=== PATIENT | male | born 2000 | race Caucasian/White ===

== ENCOUNTER 2024-09-15 10:13 | Emergency (ER) | payer MEDICAID, SELFPAY ==
[2024-09-15 10:14] VITALS: BMI 21.7
[2024-09-15 10:30] VITALS: BP 115/77; PULSE 70; RESP 18; TEMP 36.7; O2SAT 100; BMI 21.5
--- NOTE | 2024-09-15 10:55 | XR_ITS ---
Examination: PA lateral chest 2 views TECHNIQUE: Upright PA lateral chest 2 views Exam date and time: September 15, 2024 1103 hours INDICATIONS: Coughing chest pain 2 weeks FINDINGS: Normal heart size Lungs are clear. The osseous structures are intact IMPRESSION: No active disease
--- NOTE | 2024-09-15 10:55 | PD.EDRME ---
Rapid Medical Screening Exam RME Arrival date/time: 09/15/24 10:13 20-year-old male presents the emergency department complains of pain on deep inspiration Chief Complaint: Flu Like Symptoms Time Seen by Provider: 09/15/24 10:33 Vital signs: Vital Signs Temperature 98.1 F 09/15/24 10:30 Pulse Rate 70 09/15/24 10:30 Respiratory Rate 18 09/15/24 10:30 Blood Pressure 115/77 09/15/24 10:30 Pulse Oximetry (%) 100 09/15/24 10:30
[2024-09-15 11:25] LABS: Basophils % (Auto) 0 % (0-2.5); Eosinophils # (Auto) 0.2 Thou/mm3 (0.0-0.5); Eosinophils % (Auto) 2 % (0-10); Hematocrit 39.4 % (41.0-53.0); Hemoglobin 13.7 g/dL (13.5-16.0); Immature Granulocytes % (Auto) 0 % (0-0); Immature Granulocytes Auto 0.03 Thou/mm3 (0.00-0.00); Lymphocytes % (Auto) 22 % (10-50); Mean Corpuscular HGB Conc 34.8 g/dl (31.0-37.0); Mean Corpuscular Hemoglobin 31.4 pg (25.0-35.0); Mean Corpuscular Volume 90 fL (80-100); Monocytes # (Auto) 0.6 Thou/mm3 (0.0-0.8); Monocytes % (Auto) 6 % (0-12); Neutrophils # (Auto) 6.2 Thou/mm3 (1.8-7.7); Neutrophils % (Auto) 69 % (37-80); Nucleated Red Blood Cell % 0 /100 WBC (0); Platelet Count 327 Thou/mm3 (140-440); RDW Standard Deviation 37.7 fL (35.1-43.9); Red Blood Count 4.37 Miln/mm3 (4.50-5.90)
[2024-09-15 11:44] LABS: Alanine Aminotransferase 21 U/L (10-49); Albumin, Serum 5.1 gm/dL (3.5-5.0); Albumin/Globulin Ratio 1.8 (1.2-2.2); Alkaline Phosphatase 82 U/L (46-116); Anion Gap 7 (7-16); Aspartate Amino Transferase 16 U/L (0-34); BUN/Creatinine Ratio 12 Ratio (12-20); Bilirubin,Total 0.6 mg/dL (0.3-1.2); Blood Urea Nitrogen 12 mg/dL (9-23); Calcium 9.9 mg/dL (8.3-10.6); Calcium (Corrected) 9.9 mg/dL (8.5-10.1); Chloride 101 mMol/L (98-107); Estimated Creatinine Clearance 117.3 mL/min (>60); Globulin 2.8 gm/dL (2.3-3.5); Glucose 81 mg/dL (74-106); Osmolality,Calculated 268 (275-295); Potassium 4.2 mMol/L (3.4-5.1); Sodium 135 mMol/L (136-145); Total Protein 7.9 gm/dL (5.7-8.2); Troponin I < 0.002 ng/mL (0.0-0.045); eGFR > 60 See Note
--- NOTE | 2024-09-15 13:14 | EDNOTE_ITS ---
ED General RME/HPI General Chief complaint: Flu Like Symptoms Stated complaint: BACK PAIN, HURTS TO BREATHE X1 DAYS Time Seen by Provider: 09/15/24 10:33 Arrival date/time: 09/15/24 10:13 RME / HPI RME / HPI narrative: 09/15/24 10:13 24-year-old male with past hx of bronchitis, seasonal allergies and chronic smoking presents to the emergency department from home on 09/15/2024 with complains of pain on deep inspiration. He endorses shortness of breath and bilateral lower chest pain on inspiration that radiated towards his back. Describes the pain as sharp, comes and goes . He also noticed greenish yellow sputum that started yesterday after he took a hot shower. He admits that he take 22,000 puffs of nicotine vaping per week for 3 years total and he smoked cigarettes prior to that for a total of 3 years. Total smoking history of 6 years. Occasional alcohol use. Endorses seasonal allergies. Denies taking medications. Denies any surgeries. Denies using any illicit drugs. MD complaint: Lower b/l chest pain Onset (ago): day(s) Location: chest Radiation: back Severity: moderate Quality: sharp Consistency: intermittent Relieving factors: none Exacerbating factors: movement Treatments prior to arrival: NSAID Related Data Previous Rx's ?Medication ?Instructions ?Recorded naproxen 500 mg tablet (Naprosyn) 500 mg PO BID PRN pain #30 tabs 10/11/20 hydrocodone 5 mg-acetaminophen 325 1 tab PO BID PRN pain #10 tabs 05/10/24 mg tablet albuterol sulfate 90 mcg/actuation 2 inh inhalation Q6H #1 ea 09/15/24 breath activated powder inhaler,sensor Allergies Allergy/AdvReac Type Severity Reaction Status Date / Time Iodinated Contrast Media Allergy Verified 09/15/24 10:17 Review of Systems Review of Systems Systems Reviewed: All systems reviewed, normal except as documented Past Medical History Past Medical History NEUROLOGIC: Negative Neurological Disorders, Dementia or Brain Tumor CARDIAC: Negative Cardiac Disorders, Atrial Fibrillation or Congestive Heart Failure RESPIRATORY: Negative Chronic Obstructive Pulmonary Disease (COPD) or CPAP Dependent GASTROINTESTINAL: Negative Gastrointestinal Disorders, Cirrhosis or Celiac Disease GENITOURINARY: Negative Genitourinary Disorders, Renal Disease or Kidney Stones REPRODUCTIVE: Negative Genital Herpes or Syphilis MUSCULOSKELETAL: Negative Musculoskeletal Disorders, Marfan's Syndrome or Rheumatoid Arthritis ENT: Negative Blind or Deafness ENDOCRINE: Negative Endocrine Disorders, Diabetes Mellitus Type 1 or Diabetes Mellitus Type 2 HEMATOLOGIC: Negative Blood Disorders or Hemophilia PSYCHO/SOCIAL: Negative Psychiatric Problems OTHER HISTORY: Negative Down Syndrome or Developmental Delay Surgical History SURGICAL: Positive Tonsillectomy Social History SMOKING STATUS: Current every day smoker SUBSTANCE USE: does not use Travel History EBOLA RISK: No ED Exam Narrative Physical exam: Constitutional:young male, well-developed, well-nourished, in no acute distress, lying in bed. HEENT: NCAT, EOMI, reactive round pupils b/l, patent nares b/l, moist mucous membranes, on room air Lung: Diminished breath sounds on auscultation, no wheezing, no rhonchi, no crackles Heart: Regular S1S2, no murmurs, gallops, or rubs Abdomen: Soft, non-distended, non-tender, bowel sounds present throughout, central obesity present. Extremities: No cyanosis, clubbing, no edema of b/l legs, LE pulses present b/l Neurologic: No focal sensory or motor deficits noted, AOx3, appropriate affect Skin: Warm, dry, no lesions or rashes noted Course Quality Measures none Orders Category Date Time Status EKG (ED ONLY) *Do not use* NOW Care 09/15/24 10:55 Completed EKG (ED Only) Stat Exams 09/15/24 10:55 Ordered XR chest 2V Stat Exams 09/15/24 10:55 Completed CBC Stat Lab 09/15/24 11:05 Completed Comprehensive Metabolic Panel Stat Lab 09/15/24 11:05 Completed Troponin I Stat Lab 09/15/24 11:05 Completed Vital Signs Vital signs: Vital Signs Temperature 98.1 F 09/15/24 10:30 Pulse Rate 70 09/15/24 10:30 Respiratory Rate 18 09/15/24 10:30 Blood Pressure 115/77 09/15/24 10:30 Pulse Oximetry (%) 100 09/15/24 10:30 [facility] Patient data External records reviewed:: None Clinical information provided by:: patient Social determinants that could affect healthcare access:: none Patient has the following chronic illnesses:: None How is presenting disease/condition affected by chronic disease/condition?: no chronic disease Evaluation data The following diagnostics were reviewed and interpreted by me:: lab results and radiology exam(s) Lab and/or radiology exams considered but not ordered:: None Interpretation Summary: CXR: no active disease, no pulmonary edema or pneumonia CMP: within normal limits CBC within normal limits Medications Medications considered but not ordered:: NONE Medication administrations:: None Consultations Consultation(s) initiated? (list below): No Diagnosis Differential Diagnosis ED Complaint MDM: Smoking associated asthma Most likely diagnosis given after review of the tests above:: URI Admission Indicated Admission indicated?: not indicated Explain why admission is indicated or not indicated:: Not indicated as patient presents with likely URI. He requires supportive care with albuterol inhaler for any wheezing or shortness of breath. Patient can follow up with PCP in outpatient setting. Admission Request Was there a request for admission?: No Disposition Plan Disposition Plan: Discharge Discharge Attestation Discharge Attestation: The patient and all family members were given an opportunity to ask questions and understood the discharge instructions. Discharge instructions specifically effects, indications for sooner follow up or return to the emergency department, and the expected course of current diagnosis. Patient condition: Stable Medical Decision Making MDM Narrative MDM Narrative: A 24-year-old male with past hx of bronchitis, seasonal allergies and chronic smoking presents to the emergency department from home on 09/15/2024 with complains of pain on deep inspiration. He endorses shortness of breath and bilateral lower chest pain on inspiration that radiated towards his back. Describes the pain as sharp, comes and goes . He also noticed greenish yellow sputum that started yesterday after he took a hot shower. He admits that he take 22,000 puffs of nicotine vaping per week. He should active infectious source with SOB and mild productive cough though likely viral in nature secondary to chronic smoking history. Chest with diminished breath sounds on auscultation. Albuterol inhaler may help with symptomatic relief. Otherwise, patient can be discharged and follow up with PCP. Differential Diagnosis Differential Diagnosis: Smoking associated asthma Lab Data 09/15/24 11:05 09/15/24 11:05 Labs: Lab Results 09/15/24 Range/Units 11:05 WBC 9.0 (3.8-10.6) Thou/mm3 RBC 4.37 L (4.50-5.90) Miln/mm3 Hgb 13.7 (13.5-16.0) g/dL Hct 39.4 L (41.0-53.0) % MCV 90 (80-100) fL MCH 31.4 (25.0-35.0) pg MCHC 34.8 (31.0-37.0) g/dl RDW Std Deviation 37.7 (35.1-43.9) fL Plt Count 327 (140-440) Thou/mm3 Neut % (Auto) 69 (37-80) % Lymph % (Auto) 22 (10-50) % [place] % (Auto) 6 (0-12) % Eos % (Auto) 2 (0-10) % Baso % (Auto) 0 (0-2.5) % Neut # (Auto) 6.2 (1.8-7.7) Thou/mm3 Lymph # (Auto) 2.0 (1.0-4.8) Thou/mm3 [place] # (Auto) 0.6 (0.0-0.8) Thou/mm3 Eos # (Auto) 0.2 (0.0-0.5) Thou/mm3 Baso # (Auto) 0.0 (0.0-0.2) Thou/mm3 Immature Gran # (Auto) 0.03 H (0.00-0.00) Thou/mm3 Absolute Nucleated RBC 0.00 (0.00-0.00) Thou/mm3 Immature Gran % 0 (0-0) % Nucleated RBC % 0 (0) /100 WBC Sodium 135 L (136-145) mMol/L Potassium 4.2 (3.4-5.1) mMol/L Chloride 101 (98-107) mMol/L Carbon Dioxide 27.0 (20.0-31.0) mMol/L Anion Gap 7 (7-16) BUN 12 (9-23) mg/dL Creatinine 1.0 (0.6-1.3) mg/dL Estim Creat Clear Calc 117.3 (>60) mL/min eGFR > 60 (60 - ) See Note BUN/Creatinine Ratio 12 (12-20) Ratio Glucose 81 (74-106) mg/dL Calculated Osmolality 268 L (275-295) Calcium 9.9 (8.3-10.6) mg/dL Corrected Calcium 9.9 (8.5-10.1) mg/dL Total Bilirubin 0.6 (0.3-1.2) mg/dL AST 16 (0-34) U/L ALT 21 (10-49) U/L Alkaline Phosphatase 82 (46-116) U/L Troponin I < 0.002 (0.0-0.045) ng/mL Total Protein 7.9 (5.7-8.2) gm/dL Albumin 5.1 H (3.5-5.0) gm/dL Globulin 2.8 (2.3-3.5) gm/dL Albumin/Globulin Ratio 1.8 (1.2-2.2) Discharge Plan Plan Patient Disposition: HOME (Self Care) Patient condition on transfer: Stable Health Concerns: Please take albuterol inhaler 2 puffs every 6 hours as needed. Please follow up with PCP in 1 week. If symptoms worsen, return to the ED. Prescriptions/Referrals Prescriptions/Med Rec: New albuterol sulfate 90 mcg/actuation aero powdr breath act w/sensor 2 inh inhalation Q6H Qty: 1 0RF No Action naproxen [Naprosyn] 500 mg tablet 500 mg PO BID PRN (Reason: pain) Qty: 30 0RF hydrocodone-acetaminophen 5-325 mg tablet 1 tab PO BID MDD 10mg PRN (Reason: pain) Qty: 10 0RF Referrals: No Primary/Family,Physician [Primary Care Provider] - In 1 week Problem List Clinical Impression: Upper respiratory infection, Viral infection Patient/Caregiver Discharge Instructions Print Language: Latvian Stand Alone Forms: Viviana Award Info., Patient Portal Info Letter
[2024-09-15 13:19] VITALS: BP 114/76; PULSE 60; RESP 16; TEMP 36.4; O2SAT 100
== END 2024-09-15 13:44 | disposition home or self-care (01) ==
PROVIDERS: Nurse Practitioner Primary Care; Emergency Provider Emergency Medicine
DX: J06.9 Acute upper respiratory infection, unspecified (principal); F17.290 Nicotine dependence, other tobacco product, uncomplicated; R94.31 Abnormal electrocardiogram [ECG] [EKG]
CPT/HCPCS: 36415; 71046; 80053; 84484; 85025; 93005; 99283

== ENCOUNTER 2024-12-01 11:49 | Emergency (ER) | payer MEDICAID, SELFPAY ==
[2024-12-01 11:58] VITALS: PULSE 87; RESP 20; O2SAT 0
[2024-12-01 12:00] VITALS: BMI 21.7
[2024-12-01 12:04] VITALS: BP 121/73; PULSE 80; RESP 20; TEMP 36.7; O2SAT 100
[2024-12-01 12:06] VITALS: BP 143/75; PULSE 87; RESP 16; TEMP 36.7; O2SAT 98
--- NOTE | 2024-12-01 12:36 | EDNOTE_ITS ---
ED Syncope RME/HPI General Chief Complaint: Syncope / Near Syncope Stated Complaint: SYNCOPE Time Seen by Provider: 12/01/24 12:32 Arrival date/time: 12/01/24 11:49 RME / HPI RME / HPI narrative: DR. FARAH MAIN ED EVALUATION: This section includes all my notes and documentations, including HPI, PE, and ED course.? Philippe Farah MD HPI: 24 year old male with no past medical history presents to the Emergency Department [facility] with complaint of syncopal episode prior to arrival. Per patient, [place] the [place] when he started feeling confused and with a headache. His mother lives across the car wash so he called her and went over there. When he arrived to his mother's place, he passed out; mother witnessed the syncopal episode, patient lost consciousness, fell, and hit his head on the car tire according to mother. Per EMS, the patient blood glucose was low. Patient denies being sick recently or any diabetes history. No other complaints reported. ROS: All negative except as documented in HPI. Physical Exam: General:? Alert and oriented.? No acute distress when remaining still.? Eyes:? Conjunctivae and lids clear. PERRL. EOMI. ENT:? No signs of head trauma. Neck:? Supple. No tenderness. Heart:? RRR. Lungs:? No respiratory distress.? Good air movement.? No rhonchi, wheezing, rales.? Chest: No tenderness. Abdomen:? Soft and nontender.? Back: No tenderness. Legs:? No clubbing, cyanosis, edema. Skin:? Warm and dry.? Neuro:? Alert and oriented X 3.? Cranial nerves II to XII grossly normal. No peripheral motor deficits. Musculoskeletal: All major joints and long bones are nontender with no limited range of motion. I reviewed all diagnostic test results. My interpretation of the EKG is?NSR (73 bpm) with no ST-T changes. My interpretation of the chest x-ray is no active disease My review of the head and cervical spine CT reports is no acute findings. Blood tests and urine tests unremarkable except hyperglycemia. At this point, diagnoses include dehydration and hypoglycemia. Treatment here included IV fluid. Significant improvement noted. Recommended supportive care and more outpatient workup. Based on my best medical judgment, made decision no further evaluation or treatment indicated at this time.? Patient understands and agrees to the discharge instructions customized and printed, see below. Discharge Instructions from Dr. Farah: 1. After extensive evaluation, there is no life-threatening condition. Such as stroke or brain tumor or heart attack. And there is no severe injury, such as brain injury or broken neck. 2. But you were treated severely low sugar level and dehydration. You don't have diabetes. 3. Your job is to eat regular nutritious meals and stay hydrated.? Increase oral fluid and maintain clear urine.? If dark or yellow, increase oral fluid. 4. Some good choices are water (but not only water because it will cause electrolyte abnormalities), sports drinks like Gatorade (with less sugar content), coconut water, chicken stock, and other fluid with electrolytes (like Pedialyte). 5. See a private doctor on 12/02/2024 for recheck and further care. Ask to review all test results and official radiology reports, to make sure you receive all necessary follow-ups and monitoring. 6. Seek immediate medical care with worsening or with any concerns. Philippe Farah MD Related Data Previous Rx's ?Medication ?Instructions ?Recorded naproxen 500 mg tablet (Naprosyn) 500 mg PO BID PRN pa in #30 tabs 10/11/20 hydrocodone 5 mg-acetaminophen 325 1 tab PO BID PRN pa in #10 tabs 05/10/24 mg tablet albuterol sulfate 90 mcg/actuation 2 inh inhalation Q6 H #1 ea 09/15/24 breath activated powder inhaler,sensor Allergies Allergy/AdvReac Type Severity Reaction Status Date / Time Iodinated Contrast Media Allergy Verified 09/15/24 10:17 Course Quality Measures none Orders Category Date Time Status EKG (ED ONLY) *Do not use* NOW Care 12/01/24 12:37 Completed Saline [Insert IV] NOW Care 12/01/24 12:36 Completed Straight [In and Out Catheter] X1 Care 12/01/24 12:[address] cervical spine wo con Stat Exams 12/01/24 12:[address] head/brain wo con Stat Exams 12/01/24 12:37 Completed EKG (ED Only) Stat Exams 12/01/24 12:37 Draft XR chest 1V portable Stat Exams 12/01/24 12:37 Completed Alcohol, Blood Medical Stat Lab 12/01/24 13:06 Completed CBC Stat Lab 12/01/24 13:06 Completed CMP [Comprehensive Metabolic Panel] Stat Lab 12/01/24 13:06 Completed Drug Screen,Urine Stat Lab 12/01/24 14:00 Completed Hemoglobin A1C [Glycohemoglobin w (eAG)] Stat Lab 12/01/24 13:06 Completed Magnesium Stat Lab 12/01/24 13:06 Completed TSH [Thyroid Stimulating Hormone] Stat Lab 12/01/24 13:06 Completed Troponin I Stat Lab 12/01/24 13:06 Completed Sodium Chloride 0.9% 1000 ml [Ns] 1,000 ml Med 12/01/24 12:36 Discontinued IV 999 mls/hr Vital Signs Vital signs: Vital Signs Temperature 98.0 F 12/01/24 12:04 Pulse Rate 80 12/01/24 12:04 Respiratory Rate 20 12/01/24 12:04 Blood Pressure 121/73 12/01/24 12:04 Pulse Oximetry (%) 100 12/01/24 12:04 Oxygen Delivery Method Room Air 12/01/24 12:04 Syncope MDM Narrative MDM Narrative:: I, Paula Aguila am scribing for and in the presence of Dr. Farah. Patient data External records reviewed:: [facility] previous records (Reviewed last ED visit dated 09/15/24, discharged with the following: Upper respiratory infection) and EMS form Clinical information provided by:: patient, EMS and parent (mother) Social determinants that could affect healthcare access:: none Patient has the following chronic illnesses:: Denies any PMHx, surgeries, daily medications, or known allergies. Denies diabetes history. How is presenting disease/condition affected by chronic disease/condition?: no chronic disease Evaluation data The following diagnostics were reviewed and interpreted by me:: lab results, radiology exam(s) and EKG tracing(s) (My interpretation of the EKG: NSR (73 bpm) with no ST-T changes. Philippe Farah MD) Lab and/or radiology exams considered but not ordered:: none Interpretation Summary: dehydration and hypoglycemia Medications / Prescriptions Medications or Prescriptions considered but not ordered:: none Medication administrations:: Medication Administration History Discontinued Medications Sodium Chloride (Ns) 1,000 mls @ 999 mls/hr IV .Q1H1M ONE Stop: 12/01/24 13:36 Last Admin: 12/01/24 14:17 Dose: Not Given Documented By: CLEMENTE Non-Admin Reason: Patient Refused IVF Consultations Consultation(s) initiated? (list below): No Diagnosis Syncope Differential Diagnosis: syncope due to orthostatic hypotension, vasovagal syncope, complete atrioventricular block, subarachnoid hemorrhage, dehydration and other (hypoglycemia, dehydration) Most likely diagnosis given after review of the tests above:: dehydration and hypoglycemia Admission Indicated Admission indicated?: not indicated Admission Request Was there a request for admission?: No Disposition Plan Disposition Plan: Discharge Discharge Attestation Discharge Attestation: The patient and all family members were given an opportunity to ask questions and understood the discharge instructions. Discharge instructions specifically effects, indications for sooner follow up or return to the emergency department, and the expected course of current diagnosis. Patient condition: Stable Discharge Plan Plan Patient Disposition: HOME (Self Care) Prescriptions/Referrals Prescriptions/Med Rec: No Action naproxen [Naprosyn] 500 mg tablet 500 mg PO BID PRN (Reason: pain) Qty: 30 0RF hydrocodone-acetaminophen 5-325 mg tablet 1 tab PO BID MDD 10mg PRN (Reason: pain) Qty: 10 0RF albuterol sulfate 90 mcg/actuation aero powdr breath act w/sensor 2 inh inhalation Q6H Qty: 1 0RF Referrals: Rocael Logan MD [Primary Care Provider] - In 1 week Problem List Clinical Impression: Hypoglycemia, Dehydration Patient/Caregiver Discharge Instructions Discharge Activity: activity as tolerated Education Materials: ED Dehydration (Adult), ED Hypoglycemia, Nondiabetic Additional Instructions: Discharge Instructions from Dr. Farah: 1. After extensive evaluation, there is no life-threatening condition. Such as stroke or brain tumor or heart attack. And there is no severe injury, such as brain injury or broken neck. 2. But you were treated severely low sugar level and dehydration. You don't have diabetes. 3. Your job is to eat regular nutritious meals and stay hydrated.? Increase oral fluid and maintain clear urine.? If dark or yellow, increase oral fluid. 4. Some good choices are water (but not only water because it will cause electrolyte abnormalities), sports drinks like Gatorade (with less sugar content), coconut water, chicken stock, and other fluid with electrolytes (like Pedialyte). 5. See a private doctor on 12/02/2024 for recheck and further care. Ask to review all test results and official radiology reports, to make sure you receive all necessary follow-ups and monitoring. 6. Seek immediate medical care with worsening or with any concerns. Print Language: Azeri Stand Alone Forms: Viviana Award Info., Patient Portal Info Letter
--- NOTE | 2024-12-01 12:37 | XR_ITS ---
Examination: CT cervical spine without contrast 2-D sagittal reconstructions 2-D coronal reconstructions 3-D reconstructions. Exam date and time:December 01, 2024 1358 hours INDICATIONS: Patient fell today with into the neck, neck pain CTDI:vol (mGy) 7.96 DLP: (mGycm) 183 Technique: Multiple 2 mm axial sections of the cervical spine have been obtained. The coronal and sagittal reconstructions have been obtained. 3-D reconstructions have been obtained. Low dose protocols were performed. One or more of the following dose reduction techniques were used; automated exposure control, adjustment of the mA and/or KV according to patient size, use of iterative reconstruction technique. Findings: Axial sections demonstrate intact base of the skull. C1 exhibit satisfactory relationship to the odontoid. No acute cervical vertebral body fracture seen. Alignment posterior spinous processes satisfactory. Impression: No acute cervical fracture.
--- NOTE | 2024-12-01 12:37 | EKG_ITS ---
[facility] Test Date: 2024-12-01 Pat Name: LINNETTE MART Department: Room: - Gender: Male Vehicle Window Tinter: : 2000 Requested By: Philippe Graham Order Number: [id number] Reading MD: Philippe Graham Measurements Intervals Guys Rate: 73 P: 58 MN: 129 QRS: 67 QRSD: 93 T: 57 QT: 359 QTc: 396 Interpretive Statements SINUS RHYTHM No previous ECG available for comparison /store/S0/[id number]/[id number].pdf
--- NOTE | 2024-12-01 12:37 | XR_ITS ---
Examination: AP chest single view TECHNIQUE: AP portable upright chest single view Exam date and time: December 01, 2024 1315 hours INDICATIONS: Shortness of breath today. FINDINGS: Normal heart size Lungs are clear. The osseous structures are intact IMPRESSION: No active disease
--- NOTE | 2024-12-01 12:37 | XR_ITS ---
Examination: CT brain head without contrast. 2-D sagittal coronal reconstructions Date and time of exam:December 01, 2024 1358 hours INDICATIONS: Syncopal episode today, patient fell with injury to the head, head pain CTDI: vol (mGy):48.7 DLP: (mGycm):789 Technique: Multiple CT axial sections of the brain have been obtained, 5 mm slice thickness. Contrast has not been administered. 2-D sagittal, coronal reconstructions have been obtained Low dose protocols were performed. One or more of the following dose reduction techniques were used; automated exposure control, adjustment of the mA and/or KV according to patient size, use of iterative reconstruction technique. Findings: No significant ventricular enlargement. Intra-axial or extra-axial hemorrhage density is not seen. No mass effect or midline shift Basal cisterns are not remarkable. Fourth ventricle is midline. Cranial vault intact. Impression: Negative for acute hemorrhage, mass effect or midline shift
[2024-12-01 13:26] LABS: Basophils % (Auto) 0 % (0-2.5); Eosinophils % (Auto) 0 % (0-10); Hematocrit 40.2 % (41.0-53.0); Hemoglobin 13.7 g/dL (13.5-16.0); Immature Granulocytes % (Auto) 0 % (0-0); Immature Granulocytes Auto 0.02 Thou/mm3 (0.00-0.00); Lymphocytes # (Auto) 1.3 Thou/mm3 (1.0-4.8); Lymphocytes % (Auto) 14 % (10-50); Mean Corpuscular HGB Conc 34.1 g/dl (31.0-37.0); Mean Corpuscular Hemoglobin 31.3 pg (25.0-35.0); Mean Corpuscular Volume 92 fL (80-100); Monocytes # (Auto) 0.5 Thou/mm3 (0.0-0.8); Monocytes % (Auto) 5 % (0-12); Neutrophils # (Auto) 7.7 Thou/mm3 (1.8-7.7); Neutrophils % (Auto) 81 % (37-80); Nucleated Red Blood Cell % 0 /100 WBC (0); Platelet Count 314 Thou/mm3 (140-440); RDW Standard Deviation 38.5 fL (35.1-43.9); Red Blood Count 4.38 Miln/mm3 (4.50-5.90); White Blood Count 9.5 Thou/mm3 (3.8-10.6)
[2024-12-01 13:44] LABS: Alanine Aminotransferase 24 U/L (10-49); Albumin, Serum 4.9 gm/dL (3.5-5.0); Albumin/Globulin Ratio 1.6 (1.2-2.2); Alcohol, Blood Medical < 3.0 mg/dL (0-10.0); Alkaline Phosphatase 63 U/L (46-116); Anion Gap 9 (7-16); Aspartate Amino Transferase 23 U/L (0-34); BUN/Creatinine Ratio 14 Ratio (12-20); Bilirubin,Total 0.3 mg/dL (0.3-1.2); Blood Urea Nitrogen 14 mg/dL (9-23); Calcium 9.9 mg/dL (8.3-10.6); Calcium (Corrected) 9.9 mg/dL (8.5-10.1); Carbon Dioxide 24.6 mMol/L (20.0-31.0); Chloride 107 mMol/L (98-107); Estimated Creatinine Clearance 115.1 mL/min (>60); Globulin 3.1 gm/dL (2.3-3.5); Glucose 128 mg/dL (74-106); Osmolality,Calculated 283 (275-295); Potassium 3.6 mMol/L (3.4-5.1); Sodium 141 mMol/L (136-145); Troponin I < 0.002 ng/mL (0.0-0.045); eGFR > 60 See Note
[2024-12-01 13:45] LABS: Thyroid Stimulating Hormone 3.15 uIU/mL (0.55-4.78)
[2024-12-01 13:50] LABS: Glucose Estimated Average 97 mg/dL (80-131)
[2024-12-01 14:41] LABS: Amphetamine/Methamp Scrn,U Negative (Negative); Barbiturate Screen,Urine Negative (Negative); Benzodiazepines Screen,Urine Negative (Negative); Benzoylecgonine Screen, Ur Negative (Negative); Fentanyl Screen,Urine Negative (Negative); Opiate Screen,Urine Negative (Negative); THC Screen,Urine Negative (Negative)
== END 2024-12-01 15:48 | disposition home or self-care (01) ==
PROVIDERS: Emergency Provider Emergency Medicine; PCP Family Medicine
DX: E86.0 Dehydration (principal); E16.2 Hypoglycemia, unspecified; R06.02 Shortness of breath; S09.90XA Unspecified injury of head, initial encounter; M54.2 Cervicalgia; W19.XXXA Unspecified fall, initial encounter
CPT/HCPCS: 36415; 70450; 71045; 72125; 80053; 80307; 80320; 83036; 83735; 84443; 84484; 85025; 93005; 99284; G0480

== ENCOUNTER 2025-05-12 13:09 | Emergency (ER) | payer MEDICAID, SELFPAY ==
[2025-05-12 13:10] VITALS: BMI 21.5
[2025-05-12 14:24] VITALS: BP 124/67; PULSE 88; RESP 18; TEMP 36.9; O2SAT 98
--- NOTE | 2025-05-12 14:36 | PD.EDRME ---
Rapid Medical Screening Exam RME Arrival date/time: 05/12/25 13:09 Chief Complaint: Head Injury Vital signs: Vital Signs Temperature 98.5 F 05/12/25 14:24 Pulse Rate 88 05/12/25 14:24 Respiratory Rate 18 05/12/25 14:24 Blood Pressure 124/67 05/12/25 14:24 Pulse Oximetry (%) 98 05/12/25 14:24 Oxygen Delivery Method Room Air 05/12/25 14:24 Pulse ox is 98% room air Vital signs reviewed by provider: Yes RME Narrative: Patient tells me last night he had a syncopal episode, upon awakening described the world as being he is in. Denies any change in speech, vision, hearing. Complains of a headache that is global. Patient also mentions that he had a glucometer and measured his glucose and it came out 50.
--- NOTE | 2025-05-12 14:38 | XR_ITS ---
Examination: CT brain head without contrast. 2-D sagittal coronal reconstructions Date and time of exam:May 12, 2025 1523 hours INDICATIONS: Patient fell today with injury to the head, forehead pain CTDI: vol (mGy):48 DLP: (mGycm):988 Technique: Multiple CT axial sections of the brain have been obtained, 5 mm slice thickness. Contrast has not been administered. 2-D sagittal, coronal reconstructions have been obtained Low dose protocols were performed. One or more of the following dose reduction techniques were used; automated exposure control, adjustment of the mA and/or KV according to patient size, use of iterative reconstruction technique. Findings: No significant ventricular enlargement. Intra-axial or extra-axial hemorrhage density is not seen. No mass effect or midline shift Basal cisterns are not remarkable. Fourth ventricle is midline. Cranial vault intact. Impression: Negative for acute hemorrhage, mass effect or midline shift
[2025-05-12 15:02] LABS: Collection Type, Urine Clean Catch
[2025-05-12 15:06] LABS: Basophils # (Auto) 0.0 Thou/mm3 (0.0-0.2); Basophils % (Auto) 0 % (0-2.5); Eosinophils # (Auto) 0.0 Thou/mm3 (0.0-0.5); Eosinophils % (Auto) 1 % (0-10); Hematocrit 37.2 % (41.0-53.0); Hemoglobin 12.9 g/dL (13.5-16.0); Immature Granulocytes Auto 0.02 Thou/mm3 (0.00-0.00); Lymphocytes # (Auto) 1.8 Thou/mm3 (1.0-4.8); Lymphocytes % (Auto) 21 % (10-50); Mean Corpuscular HGB Conc 34.7 g/dl (31.0-37.0); Mean Corpuscular Hemoglobin 31.6 pg (25.0-35.0); Mean Corpuscular Volume 91 fL (80-100); Monocytes # (Auto) 0.5 Thou/mm3 (0.0-0.8); Monocytes % (Auto) 6 % (0-12); Neutrophils # (Auto) 6.0 Thou/mm3 (1.8-7.7); Neutrophils % (Auto) 72 % (37-80); Nucleated Red Blood Cell # 0.00 Thou/mm3 (0.00-0.00); Nucleated Red Blood Cell % 0 /100 WBC (0); Platelet Count 298 Thou/mm3 (140-440); RDW Standard Deviation 38.5 fL (35.1-43.9); Red Blood Count 4.08 Miln/mm3 (4.50-5.90); White Blood Count 8.3 Thou/mm3 (3.8-10.6)
[2025-05-12 15:19] LABS: Glucose Estimated Average 108 mg/dL (80-131); Hemoglobin A1C 5.4 % Hgb (4.8-6.0)
[2025-05-12 15:21] LABS: Bilirubin,Urine Negative (Negative); Blood,Urine Negative (Negative); Clarity,Urine Clear (Clear/Hazy); Color,Urine Colorless (Lt Yel-Yel); Glucose, Urine Negative (Negative); Ketones,Urine Negative (Negative); Leukocyte Esterase,Urine Negative (Negative); Nitrite,Urine Negative (Negative); PH,Urine 6.5 (5.0-7.0); Protein,Urine Negative (Neg - Trace); RBC,Urine < 1 /hpf (0-3); Specific Gravity,Urine 1.009 (1.001-1.035); Squamous Epithelial Cell,Urine < 1 /hpf (0-5); Urobilinogen,Urine Negative mg/dL (0.0-1.0); WBC,Urine < 1 /hpf (0-5)
[2025-05-12 15:25] LABS: Alanine Aminotransferase 30 U/L (10-49); Albumin, Serum 4.7 gm/dL (3.5-5.0); Albumin/Globulin Ratio 1.8 (1.2-2.2); Alkaline Phosphatase 62 U/L (46-116); Anion Gap 9 (7-16); Aspartate Amino Transferase 24 U/L (0-34); BUN/Creatinine Ratio 10 Ratio (12-20); Bilirubin,Total 0.4 mg/dL (0.3-1.2); Blood Urea Nitrogen 10 mg/dL (9-23); Calcium 10.3 mg/dL (8.3-10.6); Calcium (Corrected) 10.3 mg/dL (8.5-10.1); Carbon Dioxide 27.4 mMol/L (20.0-31.0); Chloride 106 mMol/L (98-107); Creatinine (Component) 1.0 mg/dL (0.6-1.3); Estimated Creatinine Clearance 114.2 mL/min (>60); Globulin 2.6 gm/dL (2.3-3.5); Glucose 94 mg/dL (74-106); Osmolality,Calculated 282 (275-295); Potassium 3.7 mMol/L (3.4-5.1); Sodium 142 mMol/L (136-145); Total Protein 7.3 gm/dL (5.7-8.2); eGFR > 60 See Note
--- NOTE | 2025-05-12 16:20 | EDNOTE_ITS ---
ED Headache RME/HPI General Chief Complaint: Head Injury Stated Complaint: PASSED OUT LAST NIGHT AND HIT HEAD; SENT BY PCP Time Seen by Provider: 05/12/25 16:19 Arrival date/time: 05/12/25 13:09 Limitations: no limitations RME / HPI RME / HPI Narrative: Patient tells me last night he had a syncopal episode, upon awakening described the world as being he is in. Denies any change in speech, vision, hearing. Com [place] of a headache that is global. Patient also mentions that he had a glucometer and measured his glucose and it came out 50. Onset (ago): day(s) (2 days) Onset description: sudden Location: diffuse Severity: moderate Severity scale (1-10): 5 Associated symptoms: none Related Data Previous Rx's ?Medication ?Instructions ?Recorded naproxen 500 mg tablet (Naprosyn) 500 mg PO BID PRN pa in #30 tabs 10/11/20 hydrocodone 5 mg-acetaminophen 325 1 tab PO BID PRN pa in #10 tabs 05/10/24 mg tablet albuterol sulfate 90 mcg/actuation 2 inh inhalation Q6 H #1 ea 09/15/24 breath activated powder inhaler,sensor ibuprofen 800 mg tablet 800 mg PO Q8H PRN pain #30 t abs 05/12/25 Allergies Allergy/AdvReac Type Severity Reaction Status Date / Time Iodinated Contrast Media Allergy Verified 05/12/25 13:13 Review of Systems Constitutional Constitutional: Reports system reviewed and no additional complaints, except as documented Eyes Eyes: Reports system reviewed and no additional complaints, except as docu mented, Denies dry eyes, Denies exophthalmos and Reports floaters Cardiovascular Cardiovascular: Denies chest pain with activity and Denies claudication ED Exam General Limitations: Present no limitations General appearance: Present alert and in no apparent distress Head Head exam: Present atraumatic Eye Eye exam: Present normal appearance, PERRL and EOMI ENT ENT exam: Present normal exam, normal oropharynx and mucous membranes moist Neck Neck exam: Present normal inspection, full ROM and trachea midline Chest Chest inspection: Present normal inspection Respiratory Respiratory exam: Present normal lung sounds bilaterally Extremities Exam Extremities exam: Present normal inspection and full ROM Back Exam Back exam: Present normal inspection and full ROM Neurological Exam Neurological exam: Present alert, oriented X3 and other (Patient is able to touch his index finger to his nail, patient is able to tap his heels to his shins, patient's is able to ambulate without assistance.) Psychiatric Psychiatric exam: Present normal affect and normal mood Skin Skin exam: Present warm, dry, intact and normal color Course Quality Measures none (NA) Orders Category Date Time Status CT head/brain wo con Stat Exams 05/12/25 14:38 Completed CBC Stat Lab 05/12/25 14:45 Completed Comprehensive Metabolic Panel Stat Lab 05/12/25 14:45 Completed Glycohemoglobin w (eAG) Stat Lab 05/12/25 14:45 Completed Urinalysis Stat Lab 05/12/25 14:57 Completed Vital Signs Vital signs: Vital Signs Temperature 98.5 F 05/12/25 14:24 Pulse Rate 88 05/12/25 14:24 Respiratory Rate 18 05/12/25 14:24 Blood Pressure 124/67 05/12/25 14:24 Pulse Oximetry (%) 98 05/12/25 14:24 Oxygen Delivery Method Room Air 05/12/25 14:24 Headache MDM Narrative MDM Narrative:: Patient will be informed of his results with to follow-up with primary care physician within a week or sooner if worse or not better. Patient data External records reviewed:: Other (specify) ([place]) Clinical information provided by:: patient and family Social determinants that could affect healthcare access:: housing Patient has the following chronic illnesses:: NA How is presenting disease/condition affected by chronic disease/condition?: caused by (Hypoglycemia) Evaluation data The following diagnostics were reviewed and interpreted by me:: lab results (While labs are within normal limits.) and radiology exam(s) (CT of the head is negative.) Lab and/or radiology exams considered but not ordered:: NA Interpretation Summary: NA Medications / Prescriptions Medications or Prescriptions considered but not ordered:: NA Medication administrations:: NA Consultations Consultation(s) initiated? (list below): No Consultation #1 (Physician, Specialty, Details): NA Diagnosis Differential diagnosis headache: subarachnoid hemorrhage, headache, meningitis, sinusitis and postconcussion syndrome Most likely diagnosis given after review of the tests above:: NA Admission Indicated Admission indicated?: not indicated Explain why admission is indicated or not indicated:: NA Admission Request Was there a request for admission?: No Disposition Plan Disposition Plan: Discharge Discharge Attestation Discharge Attestation: The patient and all family members were given an opportunity to ask questions and understood the discharge instructions. Discharge instructions specifically effects, indications for sooner follow up or return to the emergency department, and the expected course of current diagnosis. Patient condition: Stable Discharge Plan Plan Patient Disposition: HOME (Self Care) Discharge Disposition comment: Patient discharged in no apparent distress Patient condition on transfer: Stable Prescriptions/Referrals Prescriptions/Med Rec: New ibuprofen 800 mg tablet 800 mg PO Q8H PRN (Reason: pain) Qty: 30 0RF No Action naproxen [Naprosyn] 500 mg tablet 500 mg PO BID PRN (Reason: pain) Qty: 30 0RF hydrocodone-acetaminophen 5-325 mg tablet 1 tab PO BID MDD 10mg PRN (Reason: pain) Qty: 10 0RF albuterol sulfate 90 mcg/actuation aero powdr breath act w/sensor 2 inh inhalation Q6H Qty: 1 0RF Referrals: Hernando Figueroa MD [Primary Care Provider] - In 1 week Problem List Clinical Impression: Headache, Sinusitis Patient/Caregiver Discharge Instructions Print Language: Spanish Stand Alone Forms: Viviana Award Info., Work/School Release, Patient Portal Info Letter PA/SUPERVISOR CORRESPONDENCE SECTION Supervising Physician PA/SUPERVISOR CORRESPONDENCE SECTION Supervising Physician: GERALD NIXON Attestation MD Attestation The patient was seen by the midlevel practitioner. I, the co-signing physician, was present during the entire ER visit. While I did not physically examine the patient, I was available for consultation as needed. I agree with the plan and documentation.
== END 2025-05-12 17:14 | disposition home or self-care (01) ==
PROVIDERS: Emergency Provider Physician Assistant; PCP Family Medicine
DX: J32.9 Chronic sinusitis, unspecified (principal)
CPT/HCPCS: 36415; 70450; 80053; 81001; 83036; 85025; 99283